=== PATIENT | female | born 1980 | race Caucasian/White ===

== ENCOUNTER → 2016-12-09 | Outpatient (CLI) | payer MEDICAID ==
[2016-12-09 09:14] LABS: ANION GAP 12.5 (10.0-19.0); BLOOD UREA NITROGEN 10 mg/dL (6-24); CHLORIDE 108 mMol/L (96-110); CO2 25 mMol/L (22-32); CREATININE 0.9 mg/dL (0.5-1.1); ESTIMATED GFR (MDRD EQUATION) > 60; POTASSIUM 3.5 mMol/L (3.7-5.1); SODIUM 142 mMol/L (135-145)
[2016-12-09 09:17] LABS: CALCIUM 7.4 mg/dL (8.5-10.5)
== END | disposition disaster alternative care site (69) ==
LOC: GLAB 11-10 08:13
PROVIDERS: Internal Medicine Endocrinology, Diabetes & Metabolism
DX: E89.0 Postprocedural hypothyroidism (principal); M11.20 Other chondrocalcinosis, unspecified site; E55.9 Vitamin D deficiency, unspecified

== ENCOUNTER → 2017-02-25 | Outpatient (CLI) | payer MEDICAID ==
[2017-02-25 16:21] LABS: ANION GAP 10.3 (10.0-19.0); CREATININE 0.9 mg/dL (0.5-1.1); POTASSIUM 3.3 mMol/L (3.7-5.1)
[2017-02-25 16:24] LABS: CALCIUM 7.3 mg/dL (8.5-10.5)
== END | disposition disaster alternative care site (69) ==
LOC: GLAB 15:21
PROVIDERS: Internal Medicine Endocrinology, Diabetes & Metabolism
DX: E83.51 Hypocalcemia (principal); E89.0 Postprocedural hypothyroidism